=== PATIENT | female | born 1985 | race African-American/Black ===

== ENCOUNTER 2018-08-27 15:39 | Emergency (ER) | payer OTHER ==
--- OUTSIDE RECORDS SUMMARY | 2018-08-27 15:41 | XMS REPORT ---
:1985 [facility] Address [address] [place] [address] Dr. Carvajal [address] [place] [id number] Care Team Providers Name Role Phone Unavailable Unavailable Unavailable Payers Payer Name Policy Type Policy Number Effective Date Expiration Date Problems This patient has no known problems. Allergies, Adverse Reactions, Alerts Allergy Allergy Status Severity Reaction(s) Onset Inactive Treating Comments Name Type Date Date Clinician No Known DA Active U 2015-05 Allergies -07 00:00:0 0 Medications This patient has no known medications.
--- NOTE | 2018-08-27 16:55 | EDPHYS ---
Physician Documentation [facility] Name: Rosa M Walter Age: 32 yrs Sex: Female : 1985 Arrival Date: 08/27/2018 Time: 15:44 Bed 11 Private MD: Out, [facility] ED Physician Vasu Spicer HPI: 08/27 16:48 This 32 yrs old Black Female presents to ER via Ambulatory with complaints of Chest jmm Congestion. 16:48 Onset: The symptoms/episode began/occurred gradually, 3 week(s) ago. Associated signs jmm and symptoms: Pertinent negatives: fever. This is a 32 year old female 26 weeks with no chronic medical conditions that presents to the ED with sinus congestion for 3 weeks. Patient denies fever, cough, or shortness of breath. Patient noticed blood in her mucus today. patient is currently on flagyl for BV. Historical: - Allergies: 16:09 No Known Allergies; jl7 - Home Meds: 16:09 None [Active]; jl7 - PMHx: 16:09 None; jl7 - PSHx: 16:09 Hernia repair; jl7 - Immunization history:: Adult Immunizations up to date. - Social history:: Smoking status: Patient/guardian denies using tobacco. - Ebola Screening: : No symptoms or risks identified at this time. ROS: 16:48 Constitutional: Negative for fever, chills, and weight loss. jmm 16:48 Neck: Negative for injury, pain, and swelling, Cardiovascular: Negative for chest pain, palpitations, and edema, Respiratory: Negative for shortness of breath, cough, wheezing, and pleuritic chest pain, Back: Negative for injury and pain, MS/Extremity: Negative for injury and deformity, Skin: Negative for injury, rash, and discoloration. 16:48 ENT: Positive for sinus congestion. 16:48 All other systems are negative. Exam: 16:48 Head/Face: atraumatic. jmm 16:48 ENT: Moist Mucus Membranes Neck: Trachea midline, Supple Chest/axilla: Normal chest wall appearance and motion. Cardiovascular: Regular rate and rhythm. No edema appreciated 16:48 Abdomen/GI: Non distended, soft Back: Normal ROM Skin: General appearance color normal MS/ Extremity: Moves all extremities, no obvious deformities appreciated, no edema noted to the lower extremities Neuro: Awake and alert, normal gait Psych: Behavior is normal, Mood is normal, Patient is cooperative and pleasant 16:48 Constitutional: The patient appears in no acute distress, alert, awake. 16:48 ENT: Posterior pharynx: is normal, no blood appreciated. 16:48 Respiratory: the patient does not display signs of respiratory distress, Respirations: normal, Breath sounds: are clear throughout. Vital Signs: 16:09 BP 132 / 89; Pulse 100; Resp 18 S; Temp 98.7(O); Pulse Ox 100% on R/A; Weight 96.62 kg 7 (R); Height 5 ft. 9 in. (175.26 cm) (R); Pain 0/10; 17:02 BP 131 / 79; rv 16:09 Body Mass Index 31.45 (96.62 kg, 175.26 cm) 7 MDM: 16:41 Patient medically screened. rin 16:48 Differential diagnosis: URI. Data reviewed: vital signs, nurses notes. Data rin interpreted: Pulse oximetry: on room air is 100 %. Interpretation: normal. ED course: Symptoms appear most likely due to irritation from post nasal drip. Patient is afebrile, non toxic in appearance. Denies shortness of breath. I have a low suspicion for PE or pneumonia. Patient prescribed amoxicillin and encouraged to take probiotics. Given strict return precautions. patient understood and agrees with the plan of care. . Administered Medications: No medications were administered Disposition: 08/28 06:39 Co-signature as Attending Physician, Vasu Spicer MD I agree with the assessment and martha plan of care. Disposition: 08/27/18 16:54 Discharged to Home. Impression: Acute sinusitis. - Condition is Stable. - Discharge Instructions: Sinusitis, Adult. - Prescriptions for Amoxicillin 875 mg Oral Tablet - take 1 tablet by ORAL route every 12 hours for 10 days; 20 tablet. - Medication Reconciliation Form, Thank You Letter, Antibiotic Education, Prescription Opioid Use form. - Follow up: Private Physician; When: 2 - 3 days; Reason: Recheck today's complaints, Continuance of care, Re-evaluation by your physician. Signatures: Dispatcher [employer] Vasu Cota MD MD cha Mickail, Joel, PA PA jmm Leal, Jahala, RN RN jl7 Babatunde, Ryan, RN RN rv Corrections: (The following items were deleted from the chart) 08/27 17:03 16:54 08/27/2018 16:54 Discharged to Home. Impression: Acute sinusitis. Condition is rv Stable. Forms are Medication Reconciliation Form, Thank You Letter, Antibiotic Education, Prescription Opioid Use. Follow up: Private Physician; When: 2 - 3 days; Reason: Recheck today's complaints, Continuance of care, Re-evaluation by your physician. rin
--- NOTE | 2018-08-27 16:55 | ER ---
Nurse's Notes [facility] Name: Rosa M Walter Age: 32 yrs Sex: Female : 1985 Arrival Date: 08/27/2018 Time: 15:44 Bed 11 Private MD: Out, [facility] Diagnosis: Acute sinusitis Presentation: 08/27 16:06 Presenting complaint: Patient states: Runny nose \T\ congestion x 3 weeks, denies cough, jl7 got put on Flagyl on for yeast infection and I feel worse today. 26 Weeks . Transition of care: patient was not received from another setting of care. Onset of symptoms was August 08, 2018. Risk Assessment: Do you want to hurt yourself or someone else? Patient reports no desire to harm self or others. Initial Sepsis Screen: Does the patient meet any 2 criteria? No. Patient's initial sepsis screen is negative. Does the patient have a suspected source of infection? No. Patient's initial sepsis screen is negative. Care prior to arrival: None. 16:06 Method Of Arrival: Ambulatory [facility] 16:06 Acuity: TAVO 4 jl7 Triage Assessment: 16:09 General: Appears in no apparent distress. uncomfortable, Behavior is calm, cooperative, jl7 appropriate for age. Pain: Denies pain. EENT: Throat is reddened. Neuro: Level of Consciousness is awake, alert, obeys commands. Cardiovascular: Patient's skin is warm and dry. Respiratory: Airway is patent is compromised Respiratory effort is even, unlabored, Respiratory pattern is. Derm: Skin is dry, Skin is normal, Skin temperature is warm. Historical: - Allergies: 16:09 No Known Allergies; jl7 - Home Meds: 16:09 None [Active]; jl7 - PMHx: 16:09 None; jl7 - PSHx: 16:09 Hernia repair; jl7 - Immunization history:: Adult Immunizations up to date. - Social history:: Smoking status: Patient/guardian denies using tobacco. - Ebola Screening: : No symptoms or risks identified at this time. Screenin:28 Abuse screen: Denies threats or abuse. Denies injuries from another. Nutritional rv screening: No deficits noted. Tuberculosis screening: No symptoms or risk factors identified. Fall Risk None identified. Assessment: 16:26 General: Appears in no apparent distress. comfortable, Behavior is calm, cooperative. rv Pain: Denies pain. Neuro: Level of Consciousness is awake, alert, obeys commands, Oriented to person, place, time, situation. Cardiovascular: Capillary refill < 3 seconds. Respiratory: Airway is patent. GI: No signs and/or symptoms were reported involving the gastrointestinal system. : No signs and/or symptoms were reported regarding the genitourinary system. EENT: No signs and/or symptoms were reported regarding the EENT system. Derm: Skin is intact. Musculoskeletal: No signs and/or symptoms reported regarding the musculoskeletal system. Vital Signs: 16:09 BP 132 / 89; Pulse 100; Resp 18 S; Temp 98.7(O); Pulse Ox 100% on R/A; Weight 96.62 kg jl7 (R); Height 5 ft. 9 in. (175.26 cm) (R); Pain 0/10; 17:02 BP 131 / 79; rv 16:09 Body Mass Index 31.45 (96.62 kg, 175.26 cm) 7 ED Course: 15:44 Patient arrived in ED. sb2 15:45 Out, [facility] is Private Physician. sb2 16:09 Triage completed. jl7 16:09 Arm band placed on right wrist. [facility] 16:15 [facility]ah [facility] 16:15 Vasu Spicer MD is Attending Physician. [facility] 16:28 Patient has correct armband on for positive identification. Bed in low position. Call rv light in reach. Side rails up X 1. NIBP on. 17:02 No provider procedures requiring assistance completed. Patient did not have IV access rv during this emergency room visit. Administered Medications: No medications were administered Outcome: 16:54 Discharge ordered by . [facility] 17:03 Discharged to home ambulatory. rv 17:03 Condition: good 17:03 Discharge instructions given to patient, Instructed on discharge instructions, follow up and referral plans. medication usage, Demonstrated understanding of instructions, follow-up care, medications, Prescriptions given X 1. 17:03 Patient left the ED. rv Signatures: Amilcar Farah PA PA jmm Leal, Jahala, RN RN jl7 Hattie Corley sb2 Ryan Fine RN RN rv
== END 2018-08-27 17:03 | disposition home or self-care (01) ==
LOC: ER 15:39
DX: J01.90 Acute sinusitis, unspecified (principal); Z3A.26 26 weeks gestation of pregnancy
CPT/HCPCS: 87804; 99282